=== PATIENT | female | born 1995 | race Caucasian/White ===

== ENCOUNTER 2017-06-24 10:07 | Emergency (ER) | payer OTHER ==
[~2017-06-24] VITALS: Ht 165.1 cm; Wt 74.8 kg
[~2017-06-24 10:07] MED LIST: GILTUSS TR TAB1 EACH PO
[2017-06-24] MEDS ORDERED: ZOVIRAX5 GM TOP (11:08)
== END 2017-06-24 11:33 | disposition home or self-care (01) ==
LOC: ER 10:07
DX: S00.521A Blister (nonthermal) of lip, initial encounter (principal); X58.XXXA Exposure to other specified factors, initial encounter; Y93.89 Activity, other specified; Y92.89 Other specified places as the place of occurrence of the external cause; Y99.8 Other external cause status